=== PATIENT | female | born 1970 ===

== ENCOUNTER 2017-01-02 09:16 | Emergency (ER) | payer OTHER ==
[2017-01-02 09:33] VITALS: RESP 18; TEMP 98.5; BMI 24.1
[2017-01-02 10:19] LABS: BASO # 0.1 K/uL (0.0-0.2); BASO % 0.8 % (0.0-2.0); EOS # 0.1 K/uL (0.0-0.7); EOS % 1.1 % (0.0-4.0); HEMATOCRIT 38.9 % (34.0-47.0); LYMPH # 2.2 K/uL (1.0-4.3); LYMPH % 26.7 % (20.0-40.0); MEAN CELL VOLUME 88.9 fL (81.0-99.0); MEAN CORPUSCULAR HEMOGLOBIN 30.7 pg (27.0-31.0); MEAN CORPUSCULAR HGB CONC 34.6 g/dL (33.0-37.0); MEAN PLATELET VOLUME 7.8 fL (7.2-11.7); MONO # 0.6 K/uL (0.0-0.8); MONO % 6.6 % (0.0-10.0); RED CELL DISTRIBUTION WIDTH 11.9 % (11.5-14.5); WHITE BLOOD COUNT 8.4 K/uL (4.8-10.8)
[2017-01-02 10:23] LABS: RBC URINE 2128 /hpf (0-3); URINE BACTERIA FEW (<OCC); URINE BILIRUBIN NEGATIVE (NEGATIVE); URINE BLOOD 3+ (NEGATIVE); URINE COLOR Yellow (YELLOW); URINE GLUCOSE (UA) 3+ mg/dL (Normal); URINE KETONE NEGATIVE (NEGATIVE); URINE LEUKOCYTE ESTERASE NEG Leu/uL (Negative); URINE PROTEIN 2+ mg/dL (NEGATIVE); URINE UROBILINOGEN NORMAL mg/dL (0.2-1.0); WBC URINE 4 /hpf (0-5)
[2017-01-02 10:26] LABS: BLOOD UREA NITROGEN 12 mg/dL (7-17); CALCIUM 9.8 mg/dl (8.6-10.4); CARBON DIOXIDE 23 mmol/L (22-30); CHLORIDE 98 mmol/L (98-107); GFR AFRICAN-AMERICAN > 60; GLUCOSE,RANDOM 201 mg/dL (65-105); POTASSIUM 4.3 mmol/L (3.6-5.2); SODIUM 136 mmol/L (132-148)
--- NOTE | 2017-01-02 10:34 | C.PDOC ---
History Of Present Illness 46 y/o female presents to ED with complaints of pelvic pain for 4 days worse today which prompted visit to ED. Patient states she was at work today and had to leave due to pain. Patient denies n/v/d, fever, pain during sex, dysuria, vaginal bleeding or discharge. No other complaints at this time. Time Seen by Provider: 01/02/17 09:23 Chief Complaint (Nursing): Abdominal Pain History Per: Patient History/Exam Limitations: no limitations Onset/Duration Of Symptoms: Days Current Symptoms Are (Timing): Still Present Past Medical History Reviewed: Historical Data, Nursing Documentation, Vital Signs Vital Signs: Last Vital Signs Temp 98.5 F 01/02/17 09:33 Pulse 75 01/02/17 12:45 Resp 18 01/02/17 12:45 BP 117/76 01/02/17 12:45 Pulse Ox 100 01/02/17 12:45 - Medical History PMH: Seizures Surgical History: No Surg Hx Family History: States: No Known Family Hx - Social History Hx Alcohol Use: No Hx Substance Use: No - Immunization History Hx Tetanus Toxoid Vaccination: No Hx Influenza Vaccination: Yes Hx Pneumococcal Vaccination: No Review Of Systems Constitutional: Negative for: Fever, Chills Gastrointestinal: Negative for: Nausea, Vomiting Genitourinary: Positive for: Pelvic Pain. Negative for: Dysuria, Vaginal Discharge, Vaginal Bleeding Musculoskeletal: Negative for: Back Pain Skin: Negative for: Rash Physical Exam - Physical Exam Appears: Non-toxic, No Acute Distress Skin: Warm, Dry, No Rash Head: Atraumatic, Normacephalic Eye(s): bilateral: Normal Inspection Oral Mucosa: Moist Neck: Normal ROM, Supple Chest: Symmetrical Cardiovascular: Rhythm Regular, No Murmur Respiratory: Normal Breath Sounds, No Rales, No Rhonchi, No Wheezing Gastrointestinal/Abdominal: Tenderness (Suprapubic area), No Guarding, No Rebound Extremity: Normal ROM, No Pedal Edema Neurological/Psych: Oriented x3 ED Course And Treatment - Laboratory Results Result Diagrams: 01/02/17 10:11 01/02/17 10:11 Lab Interpretation: Normal Urine POC: Negative O2 Sat by Pulse Oximetry: 99 (RA) Pulse Ox Interpretation: Normal - CT Scan/US pelvic US Other Rad Studies (CT/US): Interpreted By Me, Read By Radiologist CT/US Interpretation: HISTORY: vaginal bleeding. COMPARISON: None available. TECHNIQUE: Transabdominal and transvaginal pelvic ultrasound was performed for evaluation of a right vaginal bleeding in this 46-year-old patient. FINDINGS: UTERUS: Measures 9.2 x 3.2 x 5.1 cm. Normal in size with mildly heterogeneous appearing myometrium without focal mass appreciable nevertheless. No fibroid or other mass lesion seen. ENDOMETRIUM: Measures 5.5 mm in diameter. The upper endometrium appears to divide and is difficult to exclude a possible septate or bicornuate uterus. CERVIX: No cervical abnormality identified. RIGHT OVARY: Measures 2.3 x 1.7 x 1.5 cm. No solid mass. Normal flow. LEFT OVARY: Measures 3.3 x 1.7 x 2.4 cm. No solid mass. Normal flow. FREE FLUID: No significant free fluid noted. OTHER FINDINGS: None. IMPRESSION: Nonfocal endometrium 5.5 mm thickness. A bicornuate uterus is in question versus septate uterus. No suspicious adnexal findings as discussed above. Progress Note: Treated with motrin PO. On re-evaluation abdomen soft. Advised to follow up with [facility] for further evaluation Reassessment Condition: Improved Medical Decision Making Medical Decision Making: Plan: * Labs * UA * Pelvic US * Motrin Disposition Counseled Patient/Family Regarding: Studies Performed, Diagnosis, Need For Followup, Rx Given - Disposition Referrals: [facility] [Outside] [facility] [Outside] Disposition: HOME/ ROUTINE Disposition Time: 12:40 Condition: STABLE Additional Instructions: Return to ED if any increase symptoms Prescriptions: Naproxen [Naprosyn] 1 tab PO BID PRN #25 tab PRN Reason: Pain Instructions: Pelvic Pain in Women (ED) Forms: [employer] (Gambian) - POA Present On Arrival: None - Clinical Impression Clinical Impression: Abdominal pain, Pelvic pain - PA / INFORMATION TECHNOLOGY INTERN / Resident Statement MD/DO has reviewed & agrees with the documentation as recorded. - Scribe Statement The provider has reviewed the documentation as recorded by the Lisa Vale All medical record entries made by the Lisa were at my direction and personally dictated by me. I have reviewed the chart and agree that the record accurately reflects my personal performance of the history, physical exam, medical decision making, and the department course for this patient. I have also personally directed, reviewed, and agree with the discharge instructions and disposition.
--- NOTE | 2017-01-02 12:15 | US ---
HISTORY: vaginal bleeding COMPARISON: None available. TECHNIQUE: Transabdominal and transvaginal pelvic ultrasound was performed for evaluation of a right vaginal bleeding in this 46-year-old patient. FINDINGS: UTERUS: Measures 9.2 x 3.2 x 5.1 cm. Normal in size with mildly heterogeneous appearing myometrium without focal mass appreciable nevertheless. No fibroid or other mass lesion seen. ENDOMETRIUM: Measures 5.5 mm in diameter. The upper endometrium appears to divide and is difficult to exclude a possible septate or bicornuate uterus. CERVIX: No cervical abnormality identified. RIGHT OVARY: Measures 2.3 x 1.7 x 1.5 cm. No solid mass. Normal flow. LEFT OVARY: Measures 3.3 x 1.7 x 2.4 cm. No solid mass. Normal flow. FREE FLUID: No significant free fluid noted. OTHER FINDINGS: None. IMPRESSION: Nonfocal endometrium 5.5 mm thickness. A bicornuate uterus is in question versus septate uterus. No suspicious adnexal findings as discussed above.
[2017-01-02 12:46] VITALS: BP 117/76; PULSE 75
[2017-01-02 17:41] VITALS: O2SAT 99
== END 2017-01-02 12:46 | disposition home or self-care (01) ==
LOC: C.ER 09:16
DX: R10.2 Pelvic and perineal pain (principal); R10.30 Lower abdominal pain, unspecified